=== PATIENT | female | born 1970 | race Caucasian/White ===

== ENCOUNTER 2021-08-19 11:13 | Observation (INO) ==
[2021-08-19] MEDS ORDERED: DEXTROSE 10% 250 ML BAG IV PRN (13:03)
[2021-08-19] MEDS ORDERED: GLUCAGON 1 MG VIAL IM PRN (13:03)
[2021-08-19 13:46] LABS: Basophils % 0.1 % (0.0-0.8); Eosinophils % 0.3 % (0.00-10.9); Hematocrit 35.6 VOL% (35.7-47.0); Hemoglobin 11.4 GM/DL (12.0-16.0); Immature Granulocytes % 1.3 %; Immature Granulocytes Absolute 0.09 #; Lymphocytes # 1.3 10*3/uL (1.4-4.0); Lymphocytes % 18.3 % (21.3-54.2); Mean Corpuscular Volume 86.2 FL (87-102); Mean Platelet Volume 9.1 FL (9.6-12.0); Monocytes # 0.5 10*3/uL (0.11-0.8); Platelet Count 230 T/CUMM (130-400); Red Blood Count 4.13 MC/CUMM (3.8-5.5); Red Cell Distribution Width 13.4 % (9.3-17.3)
[2021-08-19 14:02] LABS: Alanine Aminotransferase 41 U/L (13-56); Albumin 2.9 G/DL (3.4-5.0); Alkaline Phosphatase 80 U/L (45-117); Aspartate Amino Transferase 57 U/L (0-37); Bilirubin,Total < 0.39 MG/DL (0.20-1.00); Blood Urea Nitrogen 10 MG/DL (7-18); Calcium 9.8 MG/DL (8.5-10.1); Carbon Dioxide 26 MMOL/L (21-32); Chloride 101 MMOL/L (98-107); Estimated Glom Filtration Rate 77 ML/MIN; Glucose 238 MG/DL (74-106); Osmolality,Calculated 274.2 MOS/KG (273-304); Potassium 3.9 MMOL/L (3.5-5.1); Sodium 134 MMOL/L (136-145)
[2021-08-19 14:16] LABS: Lymphocytes 20 % (20-55); Total Cells Counted 100
[2021-08-19 14:19] LABS: Anisocytosis Slight; Atypical Lymphocytes Few; Microcytosis Slight; Platelet Estimate Normal
[2021-08-19] MEDS: PIPERACILLIN/TAZOBACTAM 3,375 MG in SODIUM CHLORIDE 0.9% 100 ML IV SCH ×2 (14:40→23:16)
[2021-08-19] MEDS ORDERED: ACETAMINOPHEN 325 MG TABLET PO PRN (14:41)
[2021-08-19] MEDS ORDERED: BISACODYL 5 MG TABLET PO PRN (15:06)
[2021-08-19] MEDS ORDERED: HYDROmorphone 1 MG/1 ML SYRINGE IV PRN (15:06)
[2021-08-19] MEDS ORDERED: ONDANSETRON 4 MG/2 ML VIAL IV PRN (15:06)
[2021-08-19] MEDS ORDERED: ALBUTEROL/IPRATROPIUM 3 ML NEB RESP TX PRN (15:06)
[2021-08-19] MEDS: INSULIN LISPRO 100 UNIT/ML SUBCUT SCH ×2 (16:52→20:45)
[2021-08-19] MEDS: glipiZIDE 5 MG TABLET PO SCH (17:47)
[2021-08-19] MEDS: VANCOMYCIN INJ 1,500 MG in SODIUM CHLORIDE 0.9% 500 ML IV SCH (18:33)
[2021-08-19] MEDS: LACTATED RINGERS 1,000 ML IV SCH (21:20)
[2021-08-20] MEDS: PIPERACILLIN/TAZOBACTAM 3,375 MG in SODIUM CHLORIDE 0.9% 100 ML IV SCH ×3 (06:10→21:59)
[2021-08-20] MEDS: PANTOPRAZOLE 40 MG TABLET PO SCH (06:10)
[2021-08-20] MEDS: LEVOTHYROXINE 112 MCG TABLET PO SCH ×2 (06:10→08:42)
[2021-08-20] MEDS: glipiZIDE 5 MG TABLET PO SCH ×2 (08:38→17:47)
[2021-08-20] MEDS: TAMOXIFEN 10 MG TABLET PO SCH (08:38)
[2021-08-20] MEDS: hydroCHLOROthiazide 25 MG TABLET PO SCH (08:38)
[2021-08-20] MEDS: ENOXAPARIN 40 MG/0.4 ML SYRINGE SUBCUT SCH (08:44)
[2021-08-20] MEDS: INSULIN LISPRO 100 UNIT/ML SUBCUT SCH ×4 (08:45→21:59)
[2021-08-20] MEDS: VANCOMYCIN INJ 1,500 MG in SODIUM CHLORIDE 0.9% 500 ML IV SCH (10:30)
[2021-08-20] MEDS: LACTATED RINGERS 1,000 ML IV SCH (15:51)
[2021-08-21] MEDS: VANCOMYCIN INJ 1,500 MG in SODIUM CHLORIDE 0.9% 500 ML IV SCH (04:30)
[2021-08-21] MEDS: LACTATED RINGERS 1,000 ML IV SCH (06:08)
[2021-08-21] MEDS: LEVOTHYROXINE 112 MCG TABLET PO SCH (06:15)
[2021-08-21] MEDS: PANTOPRAZOLE 40 MG TABLET PO SCH (06:15)
[2021-08-21] MEDS: PIPERACILLIN/TAZOBACTAM 3,375 MG in SODIUM CHLORIDE 0.9% 100 ML IV SCH ×3 (08:15→22:18)
[2021-08-21] MEDS: hydroCHLOROthiazide 25 MG TABLET PO SCH (08:16)
[2021-08-21] MEDS: ENOXAPARIN 40 MG/0.4 ML SYRINGE SUBCUT SCH (08:16)
[2021-08-21] MEDS: glipiZIDE 5 MG TABLET PO SCH ×2 (08:17→17:14)
[2021-08-21] MEDS: INSULIN LISPRO 100 UNIT/ML SUBCUT SCH ×4 (08:17→22:19)
[2021-08-21] MEDS: TAMOXIFEN 10 MG TABLET PO SCH (08:17)
[2021-08-22] MEDS: VANCOMYCIN INJ 1,500 MG in SODIUM CHLORIDE 0.9% 500 ML IV SCH (02:45)
[2021-08-22] MEDS: LACTATED RINGERS 1,000 ML IV SCH ×2 (05:09→11:23)
[2021-08-22] MEDS: PIPERACILLIN/TAZOBACTAM 3,375 MG in SODIUM CHLORIDE 0.9% 100 ML IV SCH (06:16)
[2021-08-22] MEDS: INSULIN LISPRO 100 UNIT/ML SUBCUT SCH (08:00)
[2021-08-22 08:06] VITALS: BP 152/81
[2021-08-22] MEDS: LEVOTHYROXINE 112 MCG TABLET PO SCH (08:31)
[2021-08-22] MEDS: PANTOPRAZOLE 40 MG TABLET PO SCH (08:31)
[2021-08-22] MEDS: glipiZIDE 5 MG TABLET PO SCH (08:33)
[2021-08-22] MEDS: TAMOXIFEN 10 MG TABLET PO SCH (08:33)
[2021-08-22] MEDS: hydroCHLOROthiazide 25 MG TABLET PO SCH (08:33)
[2021-08-22] MEDS: ENOXAPARIN 40 MG/0.4 ML SYRINGE SUBCUT SCH (08:35)
== END 2021-08-22 12:15 | disposition home or self-care (01) ==
LOC: INTOOBSV 11:41 → N.5E 11:41
PROVIDERS: ADMIT Surgery; ATTEND Surgery